=== PATIENT | female | born 1985 | race Caucasian/White ===

== ENCOUNTER 2016-03-16 16:09 | Emergency (ER) | payer BC ==
[~2016-03-16] VITALS: Ht 154.9 cm; Wt 50.8 kg
[2016-03-16 16:33] VITALS: BP 101/63
== END 2016-03-16 17:21 | disposition home or self-care (01) ==
LOC: ER 16:13
DX: R42 Dizziness and giddiness (principal); H60.92 Unspecified otitis externa, left ear; F43.10 Post-traumatic stress disorder, unspecified; Z91.018 Allergy to other foods; Z91.013 Allergy to seafood
CPT/HCPCS: 99283; A4606; Z7610

== ENCOUNTER 2016-03-19 08:19 | Emergency (ER) | payer BC ==
[~2016-03-19] VITALS: Ht 154.9 cm; Wt 49.9 kg
[2016-03-19 08:19] VITALS: BP 114/72
== END 2016-03-19 08:48 | disposition home or self-care (01) ==
LOC: ER 08:20
DX: H92.02 Otalgia, left ear (principal); H60.8X2 Other otitis externa, left ear; F43.10 Post-traumatic stress disorder, unspecified; R42 Dizziness and giddiness; Z91.013 Allergy to seafood; Z91.018 Allergy to other foods
CPT/HCPCS: 99283; A4606; Z7610

== ENCOUNTER 2016-06-21 11:14 | Emergency (ER) | payer BC ==
[~2016-06-21] VITALS: Ht 157.5 cm; Wt 52.2 kg
[2016-06-21 11:18] VITALS: BP 115/81
== END 2016-06-21 11:36 | disposition home or self-care (01) ==
LOC: ER 11:15
DX: L50.9 Urticaria, unspecified (principal); F43.10 Post-traumatic stress disorder, unspecified; Z91.018 Allergy to other foods; Z91.013 Allergy to seafood
CPT/HCPCS: A4606; Z7610

== ENCOUNTER 2016-08-20 15:24 | Emergency (ER) | payer BC ==
[~2016-08-20] VITALS: Ht 154.9 cm; Wt 47.6 kg
[2016-08-20] MEDS ORDERED: TDAP [DIPH/PERTUSSIS/TET] 0.5 ML VIAL IM ONE ×2 (16:30→16:33)
[2016-08-20 16:40] VITALS: BP 114/72
== END 2016-08-20 16:41 | disposition home or self-care (01) ==
LOC: ER 15:27
DX: T19.2XXA Foreign body in vulva and vagina, initial encounter (principal); M79.671 Pain in right foot; F43.10 Post-traumatic stress disorder, unspecified; Z91.018 Allergy to other foods; Z91.013 Allergy to seafood; X58.XXXA Exposure to other specified factors, initial encounter; Y93.89 Activity, other specified; Y92.89 Other specified places as the place of occurrence of the external cause; Y99.9 Unspecified external cause status
CPT/HCPCS: 90471; 90715; 99284; A4606; Z7610

== ENCOUNTER 2016-10-04 22:12 | Emergency (ER) | payer BC ==
[~2016-10-04] VITALS: Ht 154.9 cm; Wt 47.6 kg
--- NOTE | 2016-10-04 23:05 | NUR ---
DR EDMONDS AT BEDSIDE FOR EVAL.
[2016-10-04] MEDS ORDERED: ACETAMINOPHEN ES 500 MG TABLET ONE (23:07)
--- NOTE | 2016-10-04 23:19 | NUR ---
Patient discharged to home in stable condition. Written and verbal after care instructions given. Patient verbalizes understanding of instruction.
[2016-10-04 23:20] VITALS: BP 118/74
[2016-10-04] MEDS ORDERED: ACETAMINOPHEN 325 MG TABLET PO ONE (23:30)
== END 2016-10-04 23:23 | disposition home or self-care (01) ==
LOC: ER 22:13
DX: S86.912A Strain of unspecified muscle(s) and tendon(s) at lower leg level, left leg, initial encounter (principal); F43.10 Post-traumatic stress disorder, unspecified; Z91.018 Allergy to other foods; Z91.013 Allergy to seafood; X58.XXXA Exposure to other specified factors, initial encounter; Y92.89 Other specified places as the place of occurrence of the external cause; Y93.89 Activity, other specified; Y99.8 Other external cause status
CPT/HCPCS: A4606; Z7610

== ENCOUNTER 2016-12-05 20:43 | Emergency (ER) | payer BC ==
[~2016-12-05] VITALS: Ht 154.9 cm; Wt 47.6 kg
--- NOTE | 2016-12-05 21:02 | NUR ---
Pt states that she thinks she either has a UTI or is , c/o Lower ABD pain, 3/10 currently, and nausea. Pt denies CP, SOB, dizziness, no other complaints, no distress noted.
[2016-12-05 21:23] LABS: APPEARANCE,URINE CLEAR (CLEAR); BILIRUBIN,URINE NEGATIVE (NEGATIVE); BLOOD, URINE NEGATIVE Ery/uL (NEGATIVE); COLOR,URINE YELLOW (YELLOW); KETONES,URINE NEGATIVE (NEGATIVE); LEUKOCYTE ESTERASE ,URINE 1+ (NEGATIVE); NITRITE, URINE NEGATIVE (NEGATIVE); PROTEIN,URINE NEGATIVE (NEGATIVE); UGLUCOSE NEGATIVE (NEGATIVE); UROBILINOGEN,URINE 0.2 EU/dL (0.2)
[2016-12-05 21:25] LABS: BASOPHILS % (AUTO) 0.5 % (0.0-2.0); EOSINOPHILS # (AUTO) 0.3 /CMM (0.0-0.7); EOSINOPHILS % (AUTO) 3.7 % (0.0-6.0); HEMATOCRIT 39 % (33-45); LYMPHOCYTES # (AUTO) 2.9 /CMM (0.8-4.8); LYMPHOCYTES % (AUTO) 31.2 % (20.0-44.0); MEAN CORPUSCULAR HEMOGLOBIN 28 PG (26.0-33.0); MEAN CORPUSCULAR HGB CONC 33 g/dl (31.0-36.0); MEAN CORPUSCULAR VOLUME 83 fL (82-100); MONOCYTES # (AUTO) 0.5 /CMM (0.1-1.30); MONOCYTES % (AUTO) 5.1 % (2.0-12.0); NEUTROPHILS # (AUTO) 5.5 /CMM (1.8-8.9); NEUTROPHILS % (AUTO) 59.5 % (43.0-81.0); PLATELET COUNT (AUTO) 230 /CMM (150-450); RDW COEFFICIENT OF VARIATION 13.9 (11.5-15.0); WHITE BLOOD COUNT (AUTO) 9.2 K/uL (4.3-11.0)
[2016-12-05 21:33] LABS: BACTERIA,URINE 1+ /HPF (None Seen); RBC,URINE 0-2 /HPF (0-2); SQUAMOUS EPITHELIAL CELL,UR 0-2 /HPF (None Seen)
[2016-12-05 21:55] LABS: CALCIUM, SERUM 8.7 mg/dL (8.5-10.1); CREATININE 0.8 mg/dL (0.6-1.3); POTASSIUM 3.7 mmol/L (3.5-5.1)
[2016-12-05 23:55] VITALS: BP 127/65
--- NOTE | 2016-12-05 23:56 | NUR ---
Patient discharged to home in stable condition. Written and verbal after care instructions given. Patient verbalizes understanding of instruction.IV removed. Catheter intact and site benign. Pressure and 4x4 applied to site. No bleeding noted. PT ambulatory with a steady gait
[2016-12-07 22:11] LABS: *NEISSERIA GONORRHOEAE NAA Negative (Negative); CHLAMYDIA TRACHOMATIS NAA Negative (Negative)
== END 2016-12-05 23:56 | disposition home or self-care (01) ==
LOC: ER 20:43
DX: N73.8 Other specified female pelvic inflammatory diseases (principal); R10.2 Pelvic and perineal pain; F43.10 Post-traumatic stress disorder, unspecified; Z91.013 Allergy to seafood; Z91.018 Allergy to other foods
CPT/HCPCS: 36415; 76856; 80048; 81001; 84702; 85025; 87077; 87086; 87210; 87491; 87591; 96372; 99285; A4606; J0696; J3490; Z7610; 81000-TC

== ENCOUNTER 2017-02-19 19:12 | Emergency (ER) | payer BC ==
[~2017-02-19] VITALS: Ht 154.9 cm; Wt 47.6 kg
[2017-02-19 19:15] VITALS: BP 107/73
--- NOTE | 2017-02-19 22:02 | NUR ---
PT CALLED IN LOBBY, PT LEFT WITHOUT BEING SEEN
== END 2017-02-19 22:03 | disposition left against medical advice (07) ==
LOC: ER 19:13
DX: Z53.21 Procedure and treatment not carried out due to patient leaving prior to being seen by health care provider (principal)
CPT/HCPCS: A4606; Z7610

== ENCOUNTER 2017-04-01 10:09 | Emergency (ER) | payer BC ==
[~2017-04-01] VITALS: Ht 154.9 cm; Wt 49.9 kg
[2017-04-01 10:29] VITALS: BP 109/73
== END 2017-04-01 11:15 | disposition home or self-care (01) ==
LOC: ER 10:11
DX: H10.9 Unspecified conjunctivitis (principal); F43.10 Post-traumatic stress disorder, unspecified; Z91.018 Allergy to other foods; Z91.013 Allergy to seafood
CPT/HCPCS: 99283; A4606; Z7610

== ENCOUNTER 2017-04-06 08:45 | Emergency (ER) | payer BC ==
[~2017-04-06] VITALS: Ht 154.9 cm; Wt 45.4 kg
[2017-04-06 08:53] VITALS: BP 120/76
[2017-04-06 09:57] LABS: APPEARANCE,URINE SL CLOUDY (CLEAR); BILIRUBIN,URINE NEGATIVE (NEGATIVE); BLOOD, URINE NEGATIVE Ery/uL (NEGATIVE); COLOR,URINE YELLOW (YELLOW); KETONES,URINE NEGATIVE (NEGATIVE); LEUKOCYTE ESTERASE ,URINE NEGATIVE (NEGATIVE); NITRITE, URINE NEGATIVE (NEGATIVE); PH,URINE 6.5 (5.0-8.0); PROTEIN,URINE NEGATIVE (NEGATIVE); UGLUCOSE NEGATIVE (NEGATIVE); UROBILINOGEN,URINE 0.2 EU/dL (0.2)
[2017-04-06 10:33] LABS: BASOPHILS % (AUTO) 0.3 % (0.0-2.0); EOSINOPHILS # (AUTO) 0.2 /CMM (0.0-0.7); EOSINOPHILS % (AUTO) 4.4 % (0.0-6.0); HEMATOCRIT 41 % (33-45); HEMOGLOBIN 13.5 g/dL (11.5-14.8); LYMPHOCYTES # (AUTO) 1.7 /CMM (0.8-4.8); LYMPHOCYTES % (AUTO) 34.5 % (20.0-44.0); MEAN CORPUSCULAR HEMOGLOBIN 28 PG (26.0-33.0); MEAN CORPUSCULAR HGB CONC 33 g/dl (31.0-36.0); MEAN CORPUSCULAR VOLUME 83 fL (82-100); MONOCYTES # (AUTO) 0.3 /CMM (0.1-1.30); MONOCYTES % (AUTO) 7.2 % (2.0-12.0); NEUTROPHILS # (AUTO) 2.6 /CMM (1.8-8.9); NEUTROPHILS % (AUTO) 53.6 % (43.0-81.0); PLATELET COUNT (AUTO) 225 /CMM (150-450); RDW COEFFICIENT OF VARIATION 12.9 (11.5-15.0); RED BLOOD CELL COUNT(AUTO) 4.91 MIL/uL (4.0-5.2); WHITE BLOOD COUNT (AUTO) 4.9 K/uL (4.3-11.0)
[2017-04-06 10:36] LABS: CALCIUM, SERUM 8.9 mg/dL (8.5-10.1); CREATININE 0.6 mg/dL (0.6-1.3)
--- NOTE | 2017-04-06 12:00 | NUR ---
IV removed. Catheter intact and site benign. Pressure and 4x4 applied to site. No bleeding noted.
--- NOTE | 2017-04-06 12:15 | NUR ---
Patient discharged to home in stable condition. Written and verbal after care instructions given. Patient verbalizes understanding of instruction.
== END 2017-04-06 12:23 | disposition home or self-care (01) ==
LOC: ER 08:46
DX: N30.00 Acute cystitis without hematuria (principal); N88.8 Other specified noninflammatory disorders of cervix uteri; M54.30 Sciatica, unspecified side; F43.10 Post-traumatic stress disorder, unspecified; Z91.018 Allergy to other foods; Z91.013 Allergy to seafood
CPT/HCPCS: 36415; 76856; 80048; 81001; 84703; 85025; 99285; A4606; Z7610; 81000-TC

== ENCOUNTER 2017-05-25 16:34 | Emergency (ER) | payer BC, MEDICAID, OTHER ==
[~2017-05-25] VITALS: Ht 154.9 cm; Wt 49.9 kg
[2017-05-25 16:56] VITALS: BP 116/77
== END 2017-05-25 17:45 | disposition home or self-care (01) ==
LOC: ER 16:39
DX: J06.9 Acute upper respiratory infection, unspecified (principal); F43.10 Post-traumatic stress disorder, unspecified; Z91.018 Allergy to other foods; Z91.013 Allergy to seafood
CPT/HCPCS: A4606; Z7502; Z7610

== ENCOUNTER 2017-06-01 11:14 | Emergency (ER) | payer BC, OTHER ==
[~2017-06-01] VITALS: Ht 154.9 cm; Wt 49.9 kg
[2017-06-01 11:33] VITALS: BP 106/56
== END 2017-06-01 12:03 | disposition home or self-care (01) ==
LOC: ER 11:16
DX: J04.0 Acute laryngitis (principal); J45.909 Unspecified asthma, uncomplicated; F43.10 Post-traumatic stress disorder, unspecified; J06.9 Acute upper respiratory infection, unspecified; Z91.018 Allergy to other foods; Z91.013 Allergy to seafood
CPT/HCPCS: 99283; A4606; Z7610

== ENCOUNTER 2017-09-22 18:16 | Emergency (ER) | payer BC ==
[~2017-09-22] VITALS: Ht 154.9 cm; Wt 47.6 kg
[2017-09-22] MEDS ORDERED: IV NS 0.9% 1,000 ML BAG IV ONE (19:30)
--- NOTE | 2017-09-22 19:55 | NUR ---
TO BED 11 AMBULATORY C/O ADBOMIAL PAIN X5 DAYS. PT DENIES N/V. PT AAOX4 NO ACUTE DISTRESS NOTED, RESP EVEN AND UNLABORED. URINE SAMPLE COLLECTED AND SENT TO LAB. PT WAS SEEN AND EVALUATED BY ER MD. WILL CARRY OUT ORDERS.
[2017-09-22 19:57] LABS: APPEARANCE,URINE CLEAR (CLEAR); BILIRUBIN,URINE NEGATIVE (NEGATIVE); BLOOD, URINE NEGATIVE Ery/uL (NEGATIVE); COLOR,URINE YELLOW (YELLOW); KETONES,URINE NEGATIVE (NEGATIVE); LEUKOCYTE ESTERASE ,URINE NEGATIVE (NEGATIVE); NITRITE, URINE NEGATIVE (NEGATIVE); PROTEIN,URINE NEGATIVE (NEGATIVE); UGLUCOSE NEGATIVE (NEGATIVE); UROBILINOGEN,URINE 0.2 EU/dL (0.2)
[2017-09-22 20:03] LABS: BASOPHILS # (AUTO) 0.1 /CMM (0.0-0.2); EOSINOPHILS % (AUTO) 3.3 % (0.0-6.0); HEMATOCRIT 41 % (33-45); HEMOGLOBIN 13.5 g/dL (11.5-14.8); LYMPHOCYTES # (AUTO) 2.5 /CMM (0.8-4.8); LYMPHOCYTES % (AUTO) 38.9 % (20.0-44.0); MEAN CORPUSCULAR HEMOGLOBIN 28 PG (26.0-33.0); MEAN CORPUSCULAR HGB CONC 33 g/dl (31.0-36.0); MEAN CORPUSCULAR VOLUME 83 fL (82-100); MONOCYTES # (AUTO) 0.4 /CMM (0.1-1.30); MONOCYTES % (AUTO) 5.9 % (2.0-12.0); NEUTROPHILS # (AUTO) 3.2 /CMM (1.8-8.9); NEUTROPHILS % (AUTO) 50.9 % (43.0-81.0); PLATELET COUNT (AUTO) 218 /CMM (150-450); RDW COEFFICIENT OF VARIATION 12.3 (11.5-15.0); WHITE BLOOD COUNT (AUTO) 6.4 K/uL (4.3-11.0)
[2017-09-22 20:09] LABS: CALCIUM, SERUM 8.7 mg/dL (8.5-10.1); POTASSIUM 3.8 mmol/L (3.5-5.1)
[2017-09-22 20:23] LABS: CREATININE 1.1 mg/dL (0.6-1.3)
--- NOTE | 2017-09-22 20:45 | NUR ---
IV removed. Catheter intact and site benign. Pressure and 4x4 applied to site. No bleeding noted. Patient discharged to home in stable condition. Written and verbal after care instructions given. Patient verbalizes understanding of instruction. ambulatory with a steady gait noted.
[2017-09-22 20:46] VITALS: BP 127/75
== END 2017-09-22 20:47 | disposition home or self-care (01) ==
LOC: ER 18:17
DX: N83.201 Unspecified ovarian cyst, right side (principal); N83.202 Unspecified ovarian cyst, left side; J45.909 Unspecified asthma, uncomplicated; F43.10 Post-traumatic stress disorder, unspecified; Z91.013 Allergy to seafood; Z98.890 Other specified postprocedural states; Z91.018 Allergy to other foods
CPT/HCPCS: 36415; 76856; 80048; 81001; 84703; 85025; 99285; A4606; J7030; Z7610; 81000-TC

== ENCOUNTER 2017-10-25 17:01 | Emergency (ER) | payer BC ==
[~2017-10-25] VITALS: Ht 154.9 cm; Wt 51.7 kg
[2017-10-25 17:01] VITALS: BP 108/81
== END 2017-10-25 17:35 | disposition home or self-care (01) ==
LOC: ER 17:09
DX: L50.9 Urticaria, unspecified (principal); B35.2 Tinea manuum; J45.909 Unspecified asthma, uncomplicated; F43.10 Post-traumatic stress disorder, unspecified; Z91.010 Allergy to peanuts; Z91.013 Allergy to seafood; Z98.890 Other specified postprocedural states
CPT/HCPCS: A4606; Z7610

== ENCOUNTER 2018-03-26 16:58 | Emergency (ER) | payer BC ==
[~2018-03-26] VITALS: Ht 154.9 cm; Wt 49.9 kg
[2018-03-26 17:28] LABS: APPEARANCE,URINE Clear (CLEAR); BILIRUBIN,URINE Negative (NEGATIVE); BLOOD, URINE Negative Ery/uL (NEGATIVE); COLOR,URINE Yellow (YELLOW); KETONES,URINE 80 (NEGATIVE); LEUKOCYTE ESTERASE ,URINE Negative (NEGATIVE); NITRITE, URINE Negative (NEGATIVE); PH,URINE 7.5 (5.0-8.0); PROTEIN,URINE 100 mg/dl (NEGATIVE); UGLUCOSE Negative (NEGATIVE); UROBILINOGEN,URINE 0.2 EU/dL (0.2)
[2018-03-26] MEDS ORDERED: IV NS 0.9% 1,000 ML BAG IV ONE (17:30)
[2018-03-26] MEDS ORDERED: ONDANSETRON HCL/PF 4 MG/2 ML VIAL IVP ONE (17:30)
[2018-03-26] MEDS ORDERED: ONDANSETRON HCL/PF 4 MG/2 ML VIAL ONE (17:34)
[2018-03-26 17:37] LABS: BASOPHILS % (AUTO) 0.4 % (0.0-2.0); HEMATOCRIT 40 % (33-45); HEMOGLOBIN 13.4 g/dL (11.5-14.8); LYMPHOCYTES # (AUTO) 0.9 /CMM (0.8-4.8); LYMPHOCYTES % (AUTO) 11.2 % (20.0-44.0); MEAN CORPUSCULAR HGB CONC 34 g/dl (31.0-36.0); MEAN CORPUSCULAR VOLUME 81 fL (82-100); MONOCYTES # (AUTO) 0.2 /CMM (0.1-1.30); NEUTROPHILS # (AUTO) 7.1 /CMM (1.8-8.9); NEUTROPHILS % (AUTO) 86.4 % (43.0-81.0); PLATELET COUNT (AUTO) 234 /CMM (150-450); RED BLOOD CELL COUNT(AUTO) 4.89 MIL/uL (4.0-5.2); WHITE BLOOD COUNT (AUTO) 8.2 K/uL (4.3-11.0)
--- NOTE | 2018-03-26 17:39 | NUR ---
C/O VOMTING X 5 HRS WENT TO URGENT CARE THIS AM GIVEN 2 SHOTS OF ZOFRAN THEN WENT HOME AT 1230 WALK UP 3 HRS LATER STARTED VOMITING AGAIN. PT AAOX4, VSS. DENIES CP, SOB, DIZZINESS @ THIS TIME. PT SEEN & EVAL'D BY DR. VALDOVINOS. MEDICATED FOR NAUSEA PER ERMD ORDER, PT JOHN WELL. WILL CONT TO MONITOR.
[2018-03-26 17:50] LABS: ALBUMIN 4.4 g/dL (3.4-5.0); BILIRUBIN,DIRECT 0.1 mg/dL (0.0-0.2); BILIRUBIN,TOTAL 0.3 mg/dL (0.2-1.0); CREATININE 0.8 mg/dL (0.6-1.3); POTASSIUM 3.8 mmol/L (3.5-5.1); TOTAL PROTEIN, SERUM 8.2 g/dL (6.4-8.2)
--- NOTE | 2018-03-26 19:14 | NUR ---
Patient discharged to home in stable condition. Written and verbal after care instructions given. Patient verbalizes understanding of instruction. IV removed. Catheter intact and site benign. Pressure and 4x4 applied to site. No bleeding noted.
[2018-03-26 19:15] VITALS: BP 110/78
== END 2018-03-26 19:18 | disposition home or self-care (01) ==
LOC: ER 17:00
DX: K52.9 Noninfective gastroenteritis and colitis, unspecified (principal); F43.10 Post-traumatic stress disorder, unspecified; Z91.040 Latex allergy status; Z91.013 Allergy to seafood; Z91.018 Allergy to other foods
CPT/HCPCS: 36415; 80048-TC; 80076-TC; 81000-TC; 84703-TC; 85025-TC; J2405; J7030

== ENCOUNTER 2018-05-28 00:32 | Emergency (ER) | payer BC ==
[~2018-05-28] VITALS: Ht 154.9 cm; Wt 49.9 kg
[2018-05-28 00:47] VITALS: BP 125/65
[2018-05-28] MEDS ORDERED: DEXAMETHASONE SOD PHOSPHATE 10 MG/ML VIAL IM ONE (01:00)
[2018-05-28] MEDS ORDERED: diphenhydrAMINE HCL ELIX 25 MG/10 ML UDC PO ONE (01:00)
[2018-05-28] MEDS ORDERED: DEXAMETHASONE SOD PHOSPHATE 10 MG/ML VIAL ONE (01:33)
[2018-05-28] MEDS ORDERED: diphenhydrAMINE HCL 25 MG CAPSULE ONE (01:33)
== END 2018-05-28 02:18 | disposition home or self-care (01) ==
LOC: ER 00:38
DX: L23.9 Allergic contact dermatitis, unspecified cause (principal); Z91.040 Latex allergy status; Z91.018 Allergy to other foods; Z91.013 Allergy to seafood
CPT/HCPCS: 96372; 99283; J1100; Q0163

== ENCOUNTER 2018-07-29 11:31 | Emergency (ER) | payer BC ==
[~2018-07-29] VITALS: Ht 149.9 cm; Wt 54.4 kg
[2018-07-29 11:36] VITALS: BP 115/81
== END 2018-07-29 11:53 | disposition home or self-care (01) ==
LOC: ER 11:38
DX: H60.392 Other infective otitis externa, left ear (principal); Z91.040 Latex allergy status; Z91.013 Allergy to seafood; Z91.018 Allergy to other foods

== ENCOUNTER 2018-12-05 21:13 | Emergency (ER) | payer BC ==
--- NOTE | 2018-12-05 21:36 | NUR ---
CALLED FOR PT IN [facility]. NO RESPONSE.
--- NOTE | 2018-12-05 22:04 | NUR ---
CALLED FOR PT IN [facility]. NO RESPONSE
--- NOTE | 2018-12-05 22:34 | NUR ---
CALLED FOR PT IN [facility]. NO RESPONSE.
== END 2018-12-05 23:10 | disposition left against medical advice (07) ==
LOC: ER 21:17
DX: Z53.21 Procedure and treatment not carried out due to patient leaving prior to being seen by health care provider (principal)

== ENCOUNTER 2019-03-03 05:41 | Emergency (ER) | payer BC, MEDICAID ==
[~2019-03-03] VITALS: Ht 154.9 cm; Wt 52.2 kg
--- NOTE | 2019-03-03 06:15 | NUR ---
PT CAME TO ER BED 4 C/O SORE THROAT. PT STATES SORE THROAT, STIFF NECK, AND COUGH RIGHT NOW. SHE STATES LAST NIGHT SHE HAD A FEVER OF 101. AAOX4. NO SOB. BREATHING EVENLY AND UNLABORED. CONNECTED TO MONITOR.
[2019-03-03] MEDS ORDERED: KETOROLAC TROMETHAMINE INJ 60 MG/2 ML VIAL IM ONE ×2 (06:30→06:43)
[2019-03-03] MEDS ORDERED: DEXAMETHASONE SOD PHOSPHATE 10 MG/ML VIAL IM ONE (06:30)
[2019-03-03] MEDS ORDERED: DEXAMETHASONE SOD PHOSPHATE 10 MG/ML VIAL ONE (06:43)
[2019-03-03 07:27] VITALS: BP 113/76
--- NOTE | 2019-03-03 07:27 | NUR ---
Patient discharged to home in stable condition. Written and verbal after care instructions given. Patient verbalizes understanding of instruction.
== END 2019-03-03 07:28 | disposition home or self-care (01) ==
LOC: ER 05:42
DX: J02.9 Acute pharyngitis, unspecified (principal); Z91.040 Latex allergy status; Z91.013 Allergy to seafood; Z91.018 Allergy to other foods
CPT/HCPCS: 96372 ×2; 99283; J1100; J1885

== ENCOUNTER 2019-09-01 09:41 | Emergency (ER) | payer BC, MEDICAID ==
[~2019-09-01] VITALS: Ht 162.6 cm; Wt 63.5 kg
--- NOTE | 2019-09-01 09:47 | NUR ---
CAME IN FOR NAUSEA/VOMITING. "GOT DRUNK LAST NIGHT, TOOK MY ZOLOFT, SINCE THEN I HAVE BEEN NAUSEOUS AND VOMITING". TO ER BED 10, HOOKED TO MONITOR, CHANGED TO HOSP GOWN, WARM BLANKET PROVIDED, AWAITING MD BENJAMIN.
--- NOTE | 2019-09-01 09:55 | NUR ---
DR LEVINE AT BEDSIDE
[2019-09-01] MEDS ORDERED: ONDANSETRON HCL/PF 4 MG/2 ML VIAL IVP ONE (10:00)
[2019-09-01] MEDS ORDERED: IV NS 0.9% 1,000 ML BAG IV ONE (10:00)
[2019-09-01] MEDS ORDERED: ONDANSETRON HCL/PF 4 MG/2 ML VIAL ONE (10:11)
[2019-09-01 10:16] LABS: BASOPHILS % (AUTO) 0.5 % (0.0-2.0); EOSINOPHILS % (AUTO) 0.7 % (0.0-6.0); HEMATOCRIT 39 % (33-45); LYMPHOCYTES % (AUTO) 17.7 % (20.0-44.0); MEAN CORPUSCULAR HGB CONC 34 g/dl (31.0-36.0); MEAN CORPUSCULAR VOLUME 85 fL (82-100); MONOCYTES # (AUTO) 0.2 /CMM (0.1-1.30); MONOCYTES % (AUTO) 4.1 % (2.0-12.0); NEUTROPHILS # (AUTO) 4.6 /CMM (1.8-8.9); PLATELET COUNT (AUTO) 224 /CMM (150-450); RED BLOOD CELL COUNT(AUTO) 4.55 MIL/uL (4.0-5.2); WHITE BLOOD COUNT (AUTO) 5.9 K/uL (4.3-11.0)
[2019-09-01 10:22] LABS: CALCIUM, SERUM 8.6 mg/dL (8.5-10.1); CREATININE 0.6 mg/dL (0.6-1.3); POTASSIUM 3.4 mmol/L (3.5-5.1)
[2019-09-01 11:03] VITALS: BP 107/71
--- NOTE | 2019-09-01 11:03 | NUR ---
IV removed. Catheter intact and site benign. Pressure and 4x4 applied to site. No bleeding noted.Patient discharged to home in stable condition. Written and verbal after care instructions given. Patient verbalizes understanding of instruction.
== END 2019-09-01 11:04 | disposition home or self-care (01) ==
LOC: ER 09:43
DX: R11.10 Vomiting, unspecified (principal); Z88.1 Allergy status to other antibiotic agents; Z91.040 Latex allergy status; Z91.013 Allergy to seafood; Z91.018 Allergy to other foods
CPT/HCPCS: 36415; 80048; 84702; 85025; 96361; 96374; 99283; J2405; J7030

== ENCOUNTER 2019-09-01 14:42 | Emergency (ER) | payer MEDICAID ==
[~2019-09-01] VITALS: Ht 152.4 cm; Wt 63.5 kg
--- NOTE | 2019-09-01 15:18 | NUR ---
CAME IN FOR "NAUSEA/VOMITING - WAS SEEN HERE EARLIER FOR SAME REASON, STILL FEELING NAUSEOUS DESPITE TAKING ZOFRAN, ALSO FEELING TINGLY ON MY ARMS AND LEGS". TO ER BED 9, HOOKED TO MONITOR, CHANGED TO HOSP GOWN, WARM BLANKET PROVIDED, AWAITING MD BENJAMIN.
[2019-09-01] MEDS ORDERED: FAMOTIDINE/PF INJ 20 MG/2 ML VIAL IV ONE ×2 (15:46→16:00)
[2019-09-01] MEDS ORDERED: METOCLOPRAMIDE HCL 10 MG/2 ML VIAL ONE (15:46)
[2019-09-01] MEDS ORDERED: KETOROLAC TROMETHAMINE INJ 30 MG/ML VIAL IV ONE (16:00)
[2019-09-01] MEDS ORDERED: IV D5/ 0.9% NACL 1,000 ML IV ONE (16:00)
[2019-09-01] MEDS ORDERED: METOCLOPRAMIDE HCL 10 MG/2 ML VIAL IV ONE (16:00)
[2019-09-01] MEDS ORDERED: KETOROLAC TROMETHAMINE INJ 30 MG/ML VIAL ONE (16:04)
--- NOTE | 2019-09-01 16:48 | NUR ---
Patient discharged to home in stable condition. Written and verbal after care instructions given. Patient verbalizes understanding of instruction.IV removed. Catheter intact and site benign. Pressure and 4x4 applied to site. No bleeding noted. Pt ambulatory with a steady gait
[2019-09-01 16:49] VITALS: BP 100/71
== END 2019-09-01 16:49 | disposition home or self-care (01) ==
LOC: ER 15:01
DX: K29.20 Alcoholic gastritis without bleeding (principal); F10.10 Alcohol abuse, uncomplicated; R11.2 Nausea with vomiting, unspecified; R19.7 Diarrhea, unspecified; Y90.9 Presence of alcohol in blood, level not specified; Z88.1 Allergy status to other antibiotic agents; Z91.040 Latex allergy status; Z91.013 Allergy to seafood; Z91.010 Allergy to peanuts
CPT/HCPCS: 36415; 83690; 96365; 96368; 96375; 99284; J1885; J2765; J3490; J7030; J7042

== ENCOUNTER 2019-09-23 06:18 | Emergency (ER) | payer BC, MEDICAID ==
[~2019-09-23] VITALS: Ht 154.9 cm; Wt 52.2 kg
--- NOTE | 2019-09-23 06:27 | NUR ---
PATIENT CAME TO ER BED 1 C/O LOWER BACK PAIN ALONG WITH FREQUENT URINATION FOR 4x DAYS. PATIENT IS AAOX4. NO SOB. BREATHING EVENLY AND UNLABORED ON ROOM AIR.
--- NOTE | 2019-09-23 06:39 | NUR ---
URINE COLLECTED AND SENT TO THE LAB.
--- NOTE | 2019-09-23 07:55 | NUR ---
Patient discharged to home in stable condition. Written and verbal after care instructions given. Patient verbalizes understanding of instruction.
[2019-09-23 07:56] VITALS: BP 112/68
[2019-09-23 08:05] LABS: APPEARANCE,URINE CLEAR (CLEAR); BILIRUBIN,URINE NEGATIVE (NEGATIVE); BLOOD, URINE TRACE-INTA Ery/uL (NEGATIVE); COLOR,URINE YELLOW (YELLOW); KETONES,URINE NEGATIVE (NEGATIVE); LEUKOCYTE ESTERASE ,URINE NEGATIVE (NEGATIVE); NITRITE, URINE NEGATIVE (NEGATIVE); PROTEIN,URINE NEGATIVE (NEGATIVE); UGLUCOSE NEGATIVE (NEGATIVE); UROBILINOGEN,URINE 0.2 EU/dL (0.2)
[2019-09-23 08:31] LABS: BACTERIA,URINE Few /HPF (None Seen); RBC,URINE 0-2 /HPF (0-2); SQUAMOUS EPITHELIAL CELL,UR Few /HPF (None Seen); WBC,URINE 0-2 /HPF (0-3)
== END 2019-09-23 07:56 | disposition home or self-care (01) ==
LOC: ER 06:25
DX: N39.0 Urinary tract infection, site not specified (principal); Z88.1 Allergy status to other antibiotic agents; Z91.040 Latex allergy status; Z91.018 Allergy to other foods; Z91.013 Allergy to seafood
CPT/HCPCS: 81000-TC; 84703-TC

== ENCOUNTER 2020-08-08 13:13 | Emergency (ER) | payer BC ==
[~2020-08-08] VITALS: Ht 154.9 cm; Wt 52.2 kg
--- NOTE | 2020-08-08 13:30 | NUR ---
THE PATIENT BIBS FOR C/O DIARRHEA X1 WEEK, WITH ABDOMINAL PAIN 8/10. ABDOMEN SOFT AND NON-DISTENDED. DENIES NAUSEA/VOMITING AT THIS TIME. IN ROOM AIR AND DENIES SOB. RESPIRATION REGULAR AND UNLABORED. WILL CONTINUE TO MONITOR THE PATIENT.
[2020-08-08 13:52] LABS: BILIRUBIN,URINE Negative (NEGATIVE); COLOR,URINE YELLOW (YELLOW); LEUKOCYTE ESTERASE ,URINE Trace (NEGATIVE); NITRITE, URINE Negative (NEGATIVE); PROTEIN,URINE Negative (NEGATIVE); UGLUCOSE Negative (NEGATIVE); UROBILINOGEN,URINE 0.2 EU/dL (0.2)
[2020-08-08 13:56] LABS: BASOPHILS % (AUTO) 0.6 % (0.0-2.0); EOSINOPHILS % (AUTO) 3.8 % (0.0-6.0); HEMATOCRIT 35 % (33-45); HEMOGLOBIN 11.9 g/dL (11.5-14.8); LYMPHOCYTES # (AUTO) 2.3 /CMM (0.8-4.8); MEAN CORPUSCULAR HGB CONC 34 g/dl (31.0-36.0); MEAN CORPUSCULAR VOLUME 84 fL (82-100); MONOCYTES # (AUTO) 0.4 /CMM (0.1-1.30); MONOCYTES % (AUTO) 5.9 % (2.0-12.0); NEUTROPHILS # (AUTO) 3.1 /CMM (1.8-8.9); NEUTROPHILS % (AUTO) 51.7 % (43.0-81.0); PLATELET COUNT (AUTO) 204 /CMM (150-450); RED BLOOD CELL COUNT(AUTO) 4.21 MIL/uL (4.0-5.2)
[2020-08-08] MEDS ORDERED: IV NS 0.9% 1,000 ML BAG IV ONE (14:00)
[2020-08-08 14:20] LABS: CREATININE 0.6 mg/dL (0.6-1.3); POTASSIUM 3.8 mmol/L (3.5-5.1)
[2020-08-08 14:23] LABS: ALBUMIN 3.5 g/dL (3.4-5.0); BILIRUBIN,DIRECT 0.1 mg/dL (0.0-0.2); BILIRUBIN,TOTAL 0.2 mg/dL (0.2-1.0); TOTAL PROTEIN, SERUM 6.5 g/dL (6.4-8.2)
[2020-08-08 14:44] LABS: BACTERIA,URINE 2+ /HPF (None Seen); RBC,URINE 0-2 /HPF (0-2); SQUAMOUS EPITHELIAL CELL,UR Moderate /HPF (None Seen); URINE AMORPHOUS PHOSPHATES Moderate /HPF (None Seen)
[2020-08-08 14:45] LABS: MUCUS,URINE Few /LPF (None Seen)
[2020-08-08] MEDS ORDERED: ONDANSETRON HCL 4 MG/5 ML SOLUTION ONE (15:27)
[2020-08-08] MEDS ORDERED: LEVO500T90 PO (15:30)
[2020-08-08] MEDS ORDERED: ONDANSETRON HCL 4 MG/5 ML SOLUTION PO ONE (15:30)
[2020-08-08] MEDS ORDERED: ONDA4TAB11 PO (15:30)
[2020-08-08 15:40] VITALS: BP 116/65
--- NOTE | 2020-08-08 15:40 | NUR ---
The patient alert and oriented x4. Denies pain. Denies nausea/vomiting. Patient discharged to home in stable condition. Written and verbal after care instructions given. Patient verbalizes understanding of instruction.
== END 2020-08-08 15:40 | disposition home or self-care (01) ==
LOC: ER 13:17
DX: R19.7 Diarrhea, unspecified (principal); F43.10 Post-traumatic stress disorder, unspecified; Z88.1 Allergy status to other antibiotic agents; Z91.040 Latex allergy status; Z91.013 Allergy to seafood; Z91.010 Allergy to peanuts
CPT/HCPCS: 36415; 80048; 80076; 81001; 84703; 85025; 87086; 96360; 99283; J7030; Q0162

== ENCOUNTER 2022-04-10 11:57 | Emergency (ER) | payer BC ==
[~2022-04-10] VITALS: Ht 154.9 cm; Wt 52.2 kg
[~2022-04-10 11:57] MED LIST: LEVO500T90 PO; ONDA4TAB11 PO
[2022-04-10 12:10] VITALS: BP 100/67
--- NOTE | 2022-04-10 12:16 | NUR ---
Patient left without being seen by ER Physician. MD noel
== END 2022-04-10 12:20 | disposition left against medical advice (07) ==
LOC: ER 12:09
DX: Z53.21 Procedure and treatment not carried out due to patient leaving prior to being seen by health care provider (principal); F43.10 Post-traumatic stress disorder, unspecified; Z88.0 Allergy status to penicillin; Z91.040 Latex allergy status; Z91.018 Allergy to other foods; Z91.013 Allergy to seafood

== ENCOUNTER → 2022-06-26 | Emergency (ER) | payer BC ==
--- NOTE | 2022-06-26 14:34 | NUR ---
Called NO response
--- NOTE | 2022-06-26 14:45 | NUR ---
Called NO response
--- NOTE | 2022-06-26 15:05 | NUR ---
Multiple calls NO response. Lakisha
== END | disposition home or self-care (01) ==
LOC: ER 14:36
DX: Z53.21 Procedure and treatment not carried out due to patient leaving prior to being seen by health care provider (principal)

== ENCOUNTER 2022-11-16 18:28 | Emergency (ER) | payer BC ==
[~2022-11-16] VITALS: Ht 154.9 cm; Wt 52.2 kg
[2022-11-16 18:41] VITALS: TEMP 98.7
[2022-11-16] MEDS ORDERED: KETOROLAC TROMETHAMINE INJ 30 MG/ML VIAL ONE (19:49)
[2022-11-16] MEDS ORDERED: KETOROLAC TROMETHAMINE INJ 60 MG/2 ML VIAL IM ONE (20:00)
[2022-11-16] MEDS ORDERED: IBUP-1955 PO (20:56)
[2022-11-16] MEDS ORDERED: BENZ-13 PO (20:56)
[2022-11-16 23:54] VITALS: BP 111/67; O2SAT 97
== END 2022-11-16 23:54 | disposition home or self-care (01) ==
LOC: ER 18:33
DX: J02.8 Acute pharyngitis due to other specified organisms (principal); Z88.0 Allergy status to penicillin; Z88.8 Allergy status to other drugs, medicaments and biological substances; Z91.013 Allergy to seafood; Z91.018 Allergy to other foods
CPT/HCPCS: 99284; 71045; 96372; 87880; J1885; 86403-TC